=== PATIENT | female | born 1980 | race Caucasian/White ===

== ENCOUNTER 2016-10-09 08:58 | Emergency (ER) | payer MEDICAID, SELFPAY ==
--- NOTE | 2016-10-09 09:36 | EDDOCDS ---
Physician Documentation [facility] Name: Annika Ivy Age: 36 yrs Sex: Female : 1980 Arrival Date: 10/09/2016 Time: 08:58 Bed Triage 2 Private MD: Disposition: 10/09/16 09:15 Discharged to Home/Self Care. Impression: Low back pain - chronic, Atypical facial pain - dental caries. - Condition is Stable. - Discharge Instructions: Chronic Back Pain, Dental Pain. - Prescriptions for Amoxicillin 500 mg Oral Capsule - take 1 capsule by ORAL route every 8 hours for 10 days; 30 tablet. Naprosyn 500 mg Oral Tablet - take 1 tablet by ORAL route 2 times per day take with food; 30 tablet. Cyclobenzaprine 10 mg Oral Tablet - take 1 tablet by ORAL route 3 times per day As needed; 15 tablet. - Medication Reconciliation, Local Pharmacy Hours form. - [facility]; When: Call to arrange an appointment; Reason: To establish care. Follow up: [facility]; When: Call to arrange an appointment; Reason: Recheck today's complaints, Continuance of care, To establish care. Follow up: Your, Dentist; When: Call to arrange an appointment; Reason: Wound/Symptom Recheck, Recheck today's complaints, Continuance of care. - Problem is chronic. - Symptoms are unchanged. Historical: - Allergies: Hydrocodone-Acetaminophen (Vomit); Tramadol HCl (Vomit); - Home Meds: 1. Aleve 220 mg Oral cap as needed (Last dose: 10/08/2016 08:00) - PMHx: slipped disc L5; Back pain; - PSHx: D & C; Tubal ligation; - Social history: Smoking status: Patient uses tobacco products, current every day smoker. No barriers to communication noted, The patient speaks fluent Hungarian. - Family history: Not pertinent. - : The pt / caregiver states he / she is not on anticoagulants. Home medication list is obtained from the patient. - Exposure Risk Screening:: None identified. 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 Vital Signs: 09:07 BP 127 / 72; Pulse 87; Resp 16; Temp 98.7(T); Pulse Ox 98% on R/A; Weight 77.11 kg / dwg 170 lbs; Height 5 ft. 8 in. (172.72 cm); Pain 04/23; 09:07 Body Mass Index 25.85 (77.11 kg, 172.72 cm) dwg Signatures: Galo Renee, RN RN dwg Jhony Yen, BERNARDOC PASissyC cc10 MTDD
--- NOTE | 2016-10-09 09:36 | EDDOCDS ---
Nurse's Notes [facility] Name: Annika Ivy Age: 36 yrs Sex: Female : 1980 Arrival Date: 10/09/2016 Time: 08:58 Bed Triage 2 Private MD: Diagnosis: Low back pain-chronic;Atypical facial pain-dental caries Presentation: 10/09 09:03 Presenting complaint: Patient states: Low back pain, chronic, gradually worse for one dwg month. No new injury. Acute neurological deficits are not present. Mechanism of Injury: No Mechanism of Injury. Adult Sepsis Screening: The patient does not have new or worsening altered mentation. Patient's respiratory rate is less than 22. Systolic blood pressure is greater than 100. Patient has a qSOFA score of 0- Negative Sepsis Screen. Suicide/Homicide risk assessment- the patient denies having any suicidal and/or homicidal ideations and does not present with any other emotional, behavioral or mental health complaints. 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 Transition of care: patient was not received from another setting of care. 09:03 Acuity: JOSEPH Level 4 dwg 09:03 Method Of Arrival: Walkin/Carried/Asstd dwg Triage Assessment: 09:07 General: Appears in no apparent distress, uncomfortable. Pain: Pain currently is 8 out dwg of 10 on a pain scale. HIV screening NA for this visit Offered previously. 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 Aleve 220 mg Oral cap as needed (Last dose: 10/08/2016 08:00) - PMHx: slipped disc L5; Back pain; - PSHx: D & C; Tubal ligation; - Social history: Smoking status: Patient uses tobacco products, current every day smoker. No barriers to communication noted, The patient speaks fluent Belarusian. - Family history: Not pertinent. - : The pt / caregiver states he / she is not on anticoagulants. Home medication list is obtained from the patient. - Exposure Risk Screening:: None identified. Screenin:32 Screening information is obtained from the patient. Fall risk: No risks identified. dwg Assistance ADL's: requires no assistance with activities of daily living. Abuse/DV Screen: The patient / caregiver reports he/she is: not in a situation that causes fear, pain or injury. Nutritional screening: No deficits noted. Advance Directives: Currently, there is no health care proxy. There is no active DNR order. There is no living will. There is no Power of Dado Operator. Advance directive information has not previously been placed in an [facility] medical record. Further advance directive information is declined. home support is adequate. Assessment: 09:31 General: Appears in no apparent distress, Behavior is cooperative. Pain: Pain currently dwg is 8 out of 10 on a pain scale. Neurological: Level of Consciousness is awake, alert, Oriented to person, place, time. Respiratory: Airway is patent Respiratory effort is even, unlabored, Respiratory pattern is regular, symmetrical, Breath sounds are clear bilaterally. Musculoskeletal: Reports pain in lumbar area, left low back and right low back. Vital Signs: 09:07 BP 127 / 72; Pulse 87; Resp 16; Temp 98.7(T); Pulse Ox 98% on R/A; Weight 77.11 kg; dwg Height 5 ft. 8 in. (172.72 cm); Pain 8/10; 09:07 Body Mass Index 25.85 (77.11 kg, 172.72 cm) [facility] Vitals: 09:07 Log In Time: October 09, 2016 at 08:56. [facility] ED Course: 09:00 Patient visited by Krissy Akers Reg. lg 09:00 Patient moved to Waiting lg 09:05 Triage Initiated dwg 09:07 [facility] cc10 09:07 Lynne Hernandez MD is Attending Physician. cc10 09:08 Patient moved to Triage 2 dwg 09:10 Patient visited by Jhony Yen PA-C. cc10 09:10 Patient visited by Jhony Yen PA-C. cc10 09:15 [facility] is Referral Physician. cc10 09:15 [place] is Referral Physician. cc10 09:15 Your, Dentist is Referral Physician. cc10 09:33 The patient / caregiver is instructed regarding the plan of care and ED course. dw 09:33 No IV's were initiated during this patient's visit. No procedures done that require dwg assistance. Order Results: There are currently no results for this order. Outcome: 09:15 Discharge ordered by Provider. cc10 09:33 Discharge Assessment: Patient awake, alert and oriented x 3. No cognitive and/or dwg functional deficits noted. Patient verbalized understanding of disposition instructions. patient administered narcotics - no. The following High Risk Discharge criteria are identified: None. Discharged to home ambulatory. Condition: good Condition: stable. No special radiology studies were completed. Property sent home with patient. 09:33 Patient left the ED. dwg Signatures: Galo Renee, RN RN Krissy Hanley, Jhony Rojas lg, PA-C PA-C cc10 MTDD
--- NOTE | 2016-10-11 10:34 | EDDOCDS ---
Nurse's Notes [facility] Name: Annika Ivy Age: 36 yrs Sex: Female : 1980 Arrival Date: 10/09/2016 Time: 08:58 Bed Triage 2 Private MD: Diagnosis: Low back pain-chronic;Atypical facial pain-dental caries Presentation: 10/09 09:03 Presenting complaint: Patient states: Low back pain, chronic, gradually worse for one dwg month. No new injury. Acute neurological deficits are not present. Mechanism of Injury: No Mechanism of Injury. Adult Sepsis Screening: The patient does not have new or worsening altered mentation. Patient's respiratory rate is less than 22. Systolic blood pressure is greater than 100. Patient has a qSOFA score of 0- Negative Sepsis Screen. Suicide/Homicide risk assessment- the patient denies having any suicidal and/or homicidal ideations and does not present with any other emotional, behavioral or mental health complaints. 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 Transition of care: patient was not received from another setting of care. 09:03 Acuity: JOSEPH Level 4 dwg 09:03 Method Of Arrival: Walkin/Carried/Asstd dwg Triage Assessment: 09:07 General: Appears in no apparent distress, uncomfortable. Pain: Pain currently is 8 out dwg of 10 on a pain scale. HIV screening NA for this visit Offered previously. 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 Aleve 220 mg Oral cap as needed (Last dose: 10/08/2016 08:00) - PMHx: slipped disc L5; Back pain; - PSHx: D & C; Tubal ligation; - Social history: Smoking status: Patient uses tobacco products, current every day smoker. No barriers to communication noted, The patient speaks fluent Mozambican. - Family history: Not pertinent. - : The pt / caregiver states he / she is not on anticoagulants. Home medication list is obtained from the patient. - Exposure Risk Screening:: None identified. Screenin:32 Screening information is obtained from the patient. Fall risk: No risks identified. dwg Assistance ADL's: requires no assistance with activities of daily living. Abuse/DV Screen: The patient / caregiver reports he/she is: not in a situation that causes fear, pain or injury. Nutritional screening: No deficits noted. Advance Directives: Currently, there is no health care proxy. There is no active DNR order. There is no living will. There is no Power of Management Accounts Manager. Advance directive information has not previously been placed in an [facility] medical record. Further advance directive information is declined. home support is adequate. Assessment: 09:31 General: Appears in no apparent distress, Behavior is cooperative. Pain: Pain currently dwg is 8 out of 10 on a pain scale. Neurological: Level of Consciousness is awake, alert, Oriented to person, place, time. Respiratory: Airway is patent Respiratory effort is even, unlabored, Respiratory pattern is regular, symmetrical, Breath sounds are clear bilaterally. Musculoskeletal: Reports pain in lumbar area, left low back and right low back. Vital Signs: 09:07 BP 127 / 72; Pulse 87; Resp 16; Temp 98.7(T); Pulse Ox 98% on R/A; Weight 77.11 kg; dwg Height 5 ft. 8 in. (172.72 cm); Pain 8/10; 09:07 Body Mass Index 25.85 (77.11 kg, 172.72 cm) [facility] Vitals: 09:07 Log In Time: October 09, 2016 at 08:56. [facility] ED Course: 09:00 Patient visited by Krissy Akers Reg. lg 09:00 Patient moved to Waiting lg 09:05 Triage Initiated dwg 09:07 [facility] cc[facility] 09:07 Lynne Hernandez MD is Attending Physician. cc10 09:08 Patient moved to Triage 2 dwg 09:10 Patient visited by Jhony Yen PA-C. cc10 09:10 Patient visited by Jhony Yen PA-C. cc10 09:15 [facility] is Referral Physician. cc10 09:15 [place] is Referral Physician. cc10 09:15 Your, Dentist is Referral Physician. cc10 09:33 The patient / caregiver is instructed regarding the plan of care and ED course. dw 09:33 No IV's were initiated during this patient's visit. No procedures done that require dwg assistance. 10:28 [facility] Payment Agreement was scanned into [employer] and attached to record. jp5 14:37 T-Sheet-- Draft Copy was scanned into [employer] and attached to record. gb Order Results: There are currently no results for this order. Outcome: 09:15 Discharge ordered by Provider. cc10 09:33 Discharge Assessment: Patient awake, alert and oriented x 3. No cognitive and/or dwg functional deficits noted. Patient verbalized understanding of disposition instructions. patient administered narcotics - no. The following High Risk Discharge criteria are identified: None. Discharged to home ambulatory. Condition: good Condition: stable. No special radiology studies were completed. Property sent home with patient. 09:33 Patient left the ED. dwg Signatures: Galo Renee, RN RN dwg Prema Lauren, Reg Reg gb Krissy Akers, Reg Reg lg Jhony Yen, PA-C PASheron cc10 Gorge Howard jp5 Chart Complete MTDD
--- NOTE | 2016-10-11 10:34 | EDDOCDS ---
Physician Documentation [facility] Name: Annika Ivy Age: 36 yrs Sex: Female : 1980 Arrival Date: 10/09/2016 Time: 08:58 Bed Triage 2 Private MD: Disposition: 10/09/16 09:15 Discharged to Home/Self Care. Impression: Low back pain - chronic, Atypical facial pain - dental caries. - Condition is Stable. - Discharge Instructions: Chronic Back Pain, Dental Pain. - Prescriptions for Amoxicillin 500 mg Oral Capsule - take 1 capsule by ORAL route every 8 hours for 10 days; 30 tablet. Naprosyn 500 mg Oral Tablet - take 1 tablet by ORAL route 2 times per day take with food; 30 tablet. Cyclobenzaprine 10 mg Oral Tablet - take 1 tablet by ORAL route 3 times per day As needed; 15 tablet. - Medication Reconciliation, Local Pharmacy Hours form. - Follow up: [facility]; When: Call to arrange an appointment; Reason: To establish care. Follow up: [facility]; When: Call to arrange an appointment; Reason: Recheck today's complaints, Continuance of care, To establish care. Follow up: Your, Dentist; When: Call to arrange an appointment; Reason: Wound/Symptom Recheck, Recheck today's complaints, Continuance of care. - Problem is chronic. - Symptoms are unchanged. Historical: - Allergies: Hydrocodone-Acetaminophen (Vomit); Tramadol HCl (Vomit); - Home Meds: 1. Aleve 220 mg Oral cap as needed (Last dose: 10/08/2016 08:00) - PMHx: slipped disc L5; Back pain; - PSHx: D & C; Tubal ligation; - Social history: Smoking status: Patient uses tobacco products, current every day smoker. No barriers to communication noted, The patient speaks fluent Malawian. - Family history: Not pertinent. - : The pt / caregiver states he / she is not on anticoagulants. Home medication list is obtained from the patient. - Exposure Risk Screening:: None identified. 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 8 in. (172.72 cm); Pain 04/23; 09:07 Body Mass Index 25.85 (77.11 kg, 172.72 cm) dwg MDM: : [facility] Payment Agreement was scanned into [employer] and attached to record. jp5 10: Financial registration complete. jp5 14:37 T-Sheet-- Draft Copy was scanned into [employer] and attached to record. gb Signatures: Galo Rneee RN RN dwg Prema Lauren, Reg Reg gb Jhony Yen, PA-C PA-C cc10 Gorge Howard jp5 The chart was reviewed and I authenticate all verbal orders and agree with the evaluation and treatment provided.Attachments: : [facility] Payment Agreement jp5 14:37 T-Sheet-- Draft Copy gb Chart Complete MTDD
--- NOTE | 2016-10-11 10:34 | EDDOCDS ---
Physician Documentation [facility] Name: Annika Ivy Age: 36 yrs Sex: Female : 1980 Arrival Date: 10/09/2016 Time: 08:58 Bed Triage 2 Private MD: Disposition: 10/09/16 09:15 Discharged to Home/Self Care. Impression: Low back pain - chronic, Atypical facial pain - dental caries. - Condition is Stable. - Discharge Instructions: Chronic Back Pain, Dental Pain. - Prescriptions for Amoxicillin 500 mg Oral Capsule - take 1 capsule by ORAL route every 8 hours for 10 days; 30 tablet. Naprosyn 500 mg Oral Tablet - take 1 tablet by ORAL route 2 times per day take with food; 30 tablet. Cyclobenzaprine 10 mg Oral Tablet - take 1 tablet by ORAL route 3 times per day As needed; 15 tablet. - Medication Reconciliation, Local Pharmacy Hours form. - Follow up: [facility]; When: Call to arrange an appointment; Reason: To establish care. Follow up: [facility]; When: Call to arrange an appointment; Reason: Recheck today's complaints, Continuance of care, To establish care. Follow up: Your, Dentist; When: Call to arrange an appointment; Reason: Wound/Symptom Recheck, Recheck today's complaints, Continuance of care. - Problem is chronic. - Symptoms are unchanged. Historical: - Allergies: Hydrocodone-Acetaminophen (Vomit); Tramadol HCl (Vomit); - Home Meds: 1. Aleve 220 mg Oral cap as needed (Last dose: 10/08/2016 08:00) - PMHx: slipped disc L5; Back pain; - PSHx: D & C; Tubal ligation; - Social history: Smoking status: Patient uses tobacco products, current every day smoker. No barriers to communication noted, The patient speaks fluent Luxembourger. - Family history: Not pertinent. - : The pt / caregiver states he / she is not on anticoagulants. Home medication list is obtained from the patient. - Exposure Risk Screening:: None identified. 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 8 in. (172.72 cm); Pain 04/23; 09:07 Body Mass Index 25.85 (77.11 kg, 172.72 cm) dwg MDM: : [facility] Payment Agreement was scanned into [email or web address] and attached to record. jp5 10: Financial registration complete. jp5 14:37 T-Sheet-- Draft Copy was scanned into [email or web address] and attached to record. gb Signatures: Galo Renee RN RN dwg Prema Lauren, Reg Reg gb Jhony Yen, PA-C PA-C cc10 Gorge Howard jp5 The chart was reviewed and I authenticate all verbal orders and agree with the evaluation and treatment provided.Attachments: : [facility] Payment Agreement jp5 14:37 T-Sheet-- Draft Copy gb Chart Complete MTDD
== END 2016-10-09 09:33 | disposition home or self-care (01) ==
LOC: M ED 08:58
DX: M54.5 Low back pain (principal); G89.29 Other chronic pain; K02.9 Dental caries, unspecified; G50.1 Atypical facial pain; F17.210 Nicotine dependence, cigarettes, uncomplicated; Z88.5 Allergy status to narcotic agent